=== PATIENT | female | born 1980 | race Caucasian/White ===

== ENCOUNTER 2020-03-30 16:16 | Inpatient (IN) | payer OTHER ==
[~2020-03-30] VITALS: Ht 162.6 cm; Wt 66.0 kg
[2020-03-30] MEDS ORDERED: MULTIVIT INFUSN,ADULT 4,VIT K 10 ML, THIAMINE INJ 100 MG, FOLIC ACID INJ 1 MG in IV NOR... IV ONE (16:45)
[2020-03-30 16:48] LABS: BILIRUBIN,URINE NEGATIVE (NEG); CLARITY,URINE CLEAR; COLOR,URINE YELLOW; NITRITE,URINE NEGATIVE (NEG); PH,URINE 6.5 (<5.0-8.0); PROTEIN,URINE NEGATIVE (NEG-TRACE)
[2020-03-30 16:57] LABS: BACTERIA,URINE MANY /HPF (0-FEW); SQUAMOUS EPITHELIAL CELL,UR MANY /LPF
[2020-03-30 16:58] LABS: RBC,URINE 0 /HPF (0-2); WBC,URINE OCC /HPF (0-4)
[2020-03-30 17:08] LABS: BASO % 0 % (0-3); EOS % 1 % (0-3); HEMATOCRIT 44.4 % (36.0-47.0); HEMOGLOBIN 15.7 g/dL (12.0-15.5); LYMPH # 1.1 x10^3/uL (1.0-4.8); LYMPH % 34 % (24-48); MEAN CORPUSCULAR HEMOGLOBIN 35 pg (25-35); MEAN CORPUSCULAR HGB CONC 35 g/dL (31-37); MEAN CORPUSCULAR VOLUME 99 fL (79-100); MONO # 0.5 x10^3/uL (0.0-1.1); MONO % 15 % (0-9); NEUT # 1.5 x10^3/uL (1.8-7.7); NEUT % 49 % (31-73); PLATELET COUNT 181 x10^3/uL (140-400); RED BLOOD COUNT 4.48 x10^6/uL (3.50-5.40); RED CELL DISTRIBUTION WIDTH 15.2 % (11.5-14.5); WHITE BLOOD COUNT 3.1 x10^3/uL (4.0-11.0)
[2020-03-30] MEDS ORDERED: ONDANSETRON PF 4 MG/2 ML VIAL. IVP ONE ×2 (17:15→19:15)
[2020-03-30 17:17] LABS: PROTHROMBIN TIME PATIENT 13.5 SEC (11.7-14.0)
[2020-03-30] MEDS ORDERED: IV NORMAL SALINE 1000ML BAG 1,000 ML IV ONE (17:30)
--- NOTE | 2020-03-30 17:37 | PHYS DOC ---
Past Medical History Past Medical History: Alcoholism (SENA STEVENSON APRN) Past Surgical History: Tonsillectomy (SENA STEVENSON APRN) Smoking Status: Current Every Day Smoker Alcohol Use: Heavy (SENA STEVENSON APRN) General Adult EDM: Chief Complaint: WITHDRAWL HPI: HPI: Patient is a 40 year old Female who presents with was at [facility] and for alcohol role rehab. Patient was sent here because of her tremors, anxiety, nausea and vomiting. Patient states she is not been able to keep anything including water down for the last couple days. She did state that she had 3 be ers today. She states about 2 years ago she had a seizure with withdrawals. She states that every day she usually has 16-24 beers. Patient denies hallucinations, chest pain, shortness of air, headache, abdominal pain, fever, vision changes, numbness or tingling, tactile hallucinations, SI, HI, dizziness. She does have visual tremors and was dry heaving in the room. Denies any pain at this time. Patient has a history of alcoholism and being a smoker. (SENA STEVENSON POLYETHYLENE COMBINER) Review of Systems: Review of Systems: Constitutional: Denies fever or chills. [] Eyes: Denies change in visual acuity. [] HENT: Denies nasal congestion or sore throat. [] Respiratory: Denies cough or shortness of breath. [] Cardiovascular: Denies chest pain or edema. [] GI: Denies abdominal pain. + nausea, +vomiting, denies bloody stools or diarrhea. [] : Denies dysuria. [] Musculoskeletal: Denies back pain or joint pain. [] Integument: Denies rash. [] Neurologic: Denies headache, focal weakness or sensory changes. Tremors [] Endocrine: Denies polyuria or polydipsia. [] Lymphatic: Denies swollen glands. [] Psychiatric: Denies depression. + anxiety. [] (SENA STEVENSON POLYETHYLENE COMBINER) Heart Score: Risk Factors: Risk Factors: DM, Current or recent (<one month) smoker, HTN, HLP, family history of CAD, obesity. Risk Scores: Score 0 - 3: 2.5% MACE over next 6 weeks - Discharge Home Score 4 - 6: 20.3% MACE over next 6 weeks - Admit for Clinical Observation Score 7 - 10: 72.7% MACE over next 6 weeks - Early Invasive Strategies (SENA STEVENSON APRN) Current Medications: Current Medications Medications (Trade) Dose Ordered Sig/Jerome Start Time Stop Time Status Last Admin Dose Admin Lorazepam (Ativan Inj) 0.5 mg 1X ONCE 03/30/20 17:15 03/30/20 17:16 DC 03/30/20 17:15 0.5 MG Multivitamins 10 ml/Thiamine HCl 100 mg/Folic Acid 1 mg/Sodium Chloride 1,011.2 ml @ 1,000 mls/ hr 1X ONCE 03/30/20 16:45 03/30/20 17:45 Ondansetron HCl (Zofran) 4 mg 1X ONCE 03/30/20 17:15 03/30/20 17:16 DC 03/30/20 17:16 4 MG Sodium Chloride 1,000 ml @ 1,000 mls/hr 1X ONCE 03/30/20 17:30 03/30/20 18:29 (SENA STEVENSON APRN) Allergies: Allergies: Allergies Coded Allergies Type Severity Reaction Last Updated Verified Penicillins Allergy Intermediate Rash 03/30/20 Yes (SENA STEVENSON APRN) Physical Exam: PE: Constitutional: Well developed, well nourished, no acute distress, non-toxic appearance. [] HENT: Normocephalic, atraumatic, bilateral external ears normal, oropharynx moist, no oral exudates, nose normal. [] Eyes: PERRLA, EOMI, conjunctiva normal, no discharge. [] Neck: Normal range of motion, no tenderness, supple, no stridor. [] Cardiovascular:Heart rate regular rhythm, no murmur [] Lungs & Thorax: Bilateral breath sounds clear to auscultation [] Abdomen: Bowel sounds normal, soft, no tenderness, no masses, no pulsatile masses. [] Skin: Warm, dry, no erythema, no rash. [] Back: No tenderness, no CVA tenderness. [] Extremities: No tenderness, no cyanosis, no clubbing, ROM intact, no edema. [] Neurologic: Alert and oriented X 3, normal motor function, normal sensory function, no focal deficits noted. Visual tremors. [] Psychologic: Affect normal, judgement normal, mood normal. Anxious. [] (SENA STEVENSON APRN) Current Patient Data: Labs: Laboratory Tests Test 03/30/20 16:32 03/30/20 16:55 Urine Collection Type Unknown Urine Color Yellow Urine Clarity Clear Urine pH 6.5 (<5.0-8.0) Urine Specific [place] 1.010 (1.000-1.030) Urine Protein Negative mg/dL (NEG-TRACE) Urine Glucose (UA) Negative mg/dL (NEG) Urine Ketones (Stick) Trace mg/dL (NEG) Urine Blood Negative (NEG) Urine Nitrite Negative (NEG) Urine Bilirubin Negative (NEG) Urine Urobilinogen Dipstick 1.0 mg/dL (0.2 mg/dL) Urine Leukocyte Esterase Trace (NEG) Urine RBC 0 /HPF (0-2) Urine WBC Occ /HPF (0-4) Urine Squamous Epithelial Cells Many /LPF Urine Bacteria Many /HPF (0-FEW) Urine Mucus Slight /LPF White Blood Count 3.1 x10^3/uL (4.0-11.0) L Red Blood Count 4.48 x10^6/uL (3.50-5.40) Hemoglobin 15.7 g/dL (12.0-15.5) H Hematocrit 44.4 % (36.0-47.0) Mean Corpuscular Volume 99 fL (79-100) Mean Corpuscular Hemoglobin 35 pg (25-35) Mean Corpuscular Hemoglobin Concent 35 g/dL (31-37) Red Cell Distribution Width 15.2 % (11.5-14.5) H Platelet Count 181 x10^3/uL (140-400) Neutrophils (%) (Auto) 49 % (31-73) Lymphocytes (%) (Auto) 34 % (24-48) Monocytes (%) (Auto) 15 % (0-9) H Eosinophils (%) (Auto) 1 % (0-3) Basophils (%) (Auto) 0 % (0-3) Neutrophils # (Auto) 1.5 x10^3/uL (1.8-7.7) L Lymphocytes # (Auto) 1.1 x10^3/uL (1.0-4.8) Monocytes # (Auto) 0.5 x10^3/uL (0.0-1.1) Eosinophils # (Auto) 0.0 x10^3/uL (0.0-0.7) Basophils # (Auto) 0.0 x10^3/uL (0.0-0.2) Prothrombin Time 13.5 SEC (11.7-14.0) Prothrombin Time INR 1.1 (0.8-1.1) Laboratory Tests 03/30/20 16:55 Vital Signs: Vital Signs Date Time Temp Pulse Resp B/P (MAP) Pulse Ox O2 Delivery O2 Flow Rate FiO2 03/30/20 16:45 98.0 94 17 132/75 (94) 97 Room Air 98.0 (SENA STEVENSON APRN) EKG: EK and read by Dr. Rashid is sinus tachycardia at 102 and no STEMI. [] (SENA STEVENSON APRN) Radiology/Procedures: Radiology/Procedures: [] Impression: [facility] [address] [place], [place] [id number] IMAGING REPORT Signed PATIENT: ROSALBA WU ACCOUNT: [id number] : 1980 LOCATION: ER AGE: 40 SEX: F EXAM STATUS: REG ER ORD. PHYSICIAN: SENA STEVENSON APRN REASON: elevated liver enzymes, vomiting, OMNI 300, 75 ML IV PROCEDURE: CT ABD PELV W/ IV CONTRST ONLY Exam: CT of abdomen and pelvis with contrast INDICATION: Elevated liver enzymes, vomiting TECHNIQUE: Sequential axial images through the abdomen and pelvis obtained following the administration of 75 mL of Omni 300 IV contrast. Sagittal and coronal reformatted images were reconstructed from the axial data and reviewed. Comparisons: None FINDINGS: Heart size is normal. No pericardial effusion. Strandy opacities at the dependent portion of the lungs likely representing atelectasis. No pleural effusion. There is severe diffuse hepatic steatosis. Spleen, pancreas, gallbladder and adrenals are unremarkable. Kidneys demonstrate symmetric enhancement. No perinephric inflammation or hydronephrosis. No renal or ureteral calculi are identified. Bladder is distended and appears thin-walled. Uterus is nonenlarged. No abnormal adnexal mass. Large and small bowel are unremarkable. Appendix is normal. No free intra-abdominal air or fluid. No obstruction. Abdominal aorta has a normal course and caliber. Abdominal vasculature is patent. No enlarged abdominal lymph nodes are identified. No suspicious osseous lesions or acute fractures. IMPRESSION: Severe diffuse hepatic steatosis., May relate to steatohepatitis. Exposure: One or more of the following in the visualized dose reduction techniques were utilized for this examination: 1. Automated exposure control 2. Adjustment of the MA and/or KV according to patient size 3. Use of iterative of reconstructive technique Electronically signed by: Rupert Porter MD (03/30/2020 7:44 PM) [id number] DICTATED and SIGNED BY: RUPERT PORTER MD DATE: 03/30/201943 (SENA STEVENSON APRN) Course & Med Decision Making: Course & Med Decision Making Pertinent Labs and Imaging studies reviewed. (See chart for details) See HPI. Alert and oriented x4. Ambulatory with a steady gait but she is shaky. Speaks in full clear sentences. Abdomen soft and nontender. Skin pink warm and dry. CIWA 14. I gave the patient 0.5MG Ativan IV and Zofran. She is getting a banana bag and another liter of normal saline. I have spoken to Dr. Miller concerning the patient. She is being admitted by Dr. Miller. Nurse called [facility] and let them know that the patient was being admitted to the hospital and would not be returning tonight. Patient continues to be nauseated. Liver enzymes are elevated. [] (SENA STEVENSON APRN) Dragon Disclaimer: Dragon Disclaimer: This electronic medical record was generated, in whole or in part, using a voice recognition dictation system. (SENA STEVENSON APRN) Departure Departure Impression: Primary Impression: Alcohol withdrawal Qualified Codes: F10.230 - Alcohol dependence with withdrawal, uncomplicated Disposition: ADMITTED INPATIENT Admitting Physician: TRUDY (SENA STEVENSON APRN) Condition: STABLE Referrals: RENETTA VIVAR (PCP) Justicifation of Admission Dx: Justifications for Admission: Justification of Admission Dx: Yes Comments: Alcohol withdrawl (SENA STEVENSON APRN) Attending Signature Attending Signature I have reviewed the PA/SECONDARY ENGLISH TEACHER's note and plan of care. I was available for consultation as needed during the patient's visit in the emergency department. I agree with the clinical impression, plan, and disposition. (OPAL RASHID DO) SENA STEVENSON APRN Mar 30, 2020 17:37 OPAL RASHID DO Mar 31, 2020 07:10
[2020-03-30 18:05] LABS: ACETAMIN < 2 mcg/ml (10-30); ETHANOL 113 mg/dL (0-10); SALIC 3.4 mg/dL (2.8-20.0)
[2020-03-30 18:08] LABS: BARBITURATES NEG (NEG); BENZODIAZEPINES NEG (NEG); CANNABINOIDS NEG (NEG); COCAINE NEG (NEG); METHADONE NEG (NEG); OPIATES NEG (NEG); PHENCYCLIDINE NEG (NEG)
[2020-03-30 18:09] LABS: AMPHETAMINE/METHAMPHETAMINE NEG (NEG)
[2020-03-30 18:19] LABS: CALCIUM 8.5 mg/dL (8.5-10.1); CREATININE 0.8 mg/dL (0.6-1.0); GFR 79.4; POTASSIUM 3.4 mmol/L (3.5-5.1)
[2020-03-30 18:25] LABS: ALBUMIN 4.2 g/dL (3.4-5.0); ALBUMIN/GLOBULIN RATIO 1.2 (1.0-1.7); TOTAL BILIRUBIN 1.2 mg/dL (0.2-1.0); TOTAL PROTEIN 7.8 g/dL (6.4-8.2)
[2020-03-30 19:08] LABS: U PREG PATIENT NEGATIVE (NEG)
[2020-03-30] MEDS ORDERED: IOHEXOL 300 MG/ML 100ML VIAL. IV ONE (19:15)
[2020-03-30] MEDS ORDERED: CONTRAST GIVEN. MC PRN (19:15)
--- NOTE | 2020-03-30 19:47 | RAD ---
Exam: CT of abdomen and pelvis with contrast INDICATION: Elevated liver enzymes, vomiting TECHNIQUE: Sequential axial images through the abdomen and pelvis obtained following the administration of 75 mL of Omni 300 IV contrast. Sagittal and coronal reformatted images were reconstructed from the axial data and reviewed. Comparisons: None FINDINGS: Heart size is normal. No pericardial effusion. Strandy opacities at the dependent portion of the lungs likely representing atelectasis. No pleural effusion. There is severe diffuse hepatic steatosis. Spleen, pancreas, gallbladder and adrenals are unremarkable. Kidneys demonstrate symmetric enhancement. No perinephric inflammation or hydronephrosis. No renal or ureteral calculi are identified. Bladder is distended and appears thin-walled. Uterus is nonenlarged. No abnormal adnexal mass. Large and small bowel are unremarkable. Appendix is normal. No free intra-abdominal air or fluid. No obstruction. Abdominal aorta has a normal course and caliber. Abdominal vasculature is patent. No enlarged abdominal lymph nodes are identified. No suspicious osseous lesions or acute fractures. IMPRESSION: Severe diffuse hepatic steatosis., May relate to steatohepatitis. Exposure: One or more of the following in the visualized dose reduction techniques were utilized for this examination: 1. Automated exposure control 2. Adjustment of the MA and/or KV according to patient size 3. Use of iterative of reconstructive technique Electronically signed by: Rupert Alfredo MD (03/30/2020 7:44 PM) [id number]
[2020-03-30] MEDS ORDERED: HALOPERIDOL LACTATE 5 MG/ML VIAL. IVP PRN (20:15)
[2020-03-30] MEDS ORDERED: cloNIDine HCL 0.1 MG TABLET PO PRN (20:15)
[2020-03-30] MEDS ORDERED: diphenhydrAMINE 50 MG/ML VIAL IVP PRN (20:15)
[2020-03-30] MEDS ORDERED: fentaNYL PF VIAL 100 MCG/2 ML VIAL IV PRN (20:15)
[2020-03-30] MEDS ORDERED: PROCHLORPERAZINE 10 MG/2 ML VIAL. IV ONE (20:30)
[2020-03-30 21:45] VITALS: BP 115/78
--- NOTE | 2020-03-30 21:45 | NUR ---
ADMISSION NOTE Pt admitted to room 514 via ER cart. Pt is A/Ox4, somewhat anxious. Explained POC, seizure precautions, ETOH w/draw protocol/CIWA assessment. Pt vu. Call light given to pt and explained. Pt also given written hospital paperwork. Admission assessment and history completed. Pt is from [place], [place], and just went to [facility] today for alcohol withdraw and treatment. Contact information for [facility] copied from ER note and placed in the chart. Pt doesn't have any personal belongings except for glasses, clothes and flip flops, which are left in the room. Will monitor.
[2020-03-30] MEDS ORDERED: CITA40TA5 PO (22:31)
[2020-03-30 23:00] VITALS: BP 102/58
[2020-03-30] MEDS: IV NORMAL SALINE 1000ML BAG 1,000 ML IV SCH (23:19)
[2020-03-30] MEDS: ENOXAPARIN 40 MG/0.4 ML SYRINGE. SQ SCH (23:20)
[2020-03-31 03:00] VITALS: BP 109/73
[2020-03-31] MEDS: IV NORMAL SALINE 1000ML BAG 1,000 ML IV SCH ×3 (05:46→15:40)
[2020-03-31] MEDS: ONDANSETRON PF 4 MG/2 ML VIAL. IV PRN ×2 (05:50→18:03)
[2020-03-31 07:59] VITALS: BP 109/70
[2020-03-31] MEDS: MULTIVIT INFUSN,ADULT 4,VIT K 10 ML, THIAMINE INJ 100 MG, FOLIC ACID INJ 1 MG in IV NOR... IV SCH (09:00)
--- NOTE | 2020-03-31 11:16 | PDOC1 ---
History and Physical Date of Admission Date of Admission DATE: 03/31/20 TIME: 11:00 Identification/Chief Complaint Chief Complaint Alcohol withdrawal Source Source: Patient History of Present Illness History of Present Illness Patient is a 40-year-old female with past medical history of alcohol abuse, who presents to the ER with complaints of alcohol withdrawal. Patient states she had checked herself into [facility], where she was noted to have worsening tremors, anxiety, and nausea since yesterday morning. She states she was dry heaving without any actual vomiting. [facility] evaluation. She states she does have a history of alcohol withdrawal seizures, with last seizure around 2 years ago. Patient states she drinks roughly 16-24 beers daily. She denies any visual hallucinations. Past Medical History Past Medical History Alcohol abuse Psych: Anxiety, Depression Past Surgical History Past Surgical History: Tonsillectomy Family History Family History: Alcohol Abuse Social History Smoke: <1 pack per day ALCOHOL: heavy Drugs: None Current Problem List Problem List Problems Medical Problems: (1) Alcohol withdrawal Status: Acute Current Medications Current Medications Current Medications Multivitamins 10 ml/Thiamine HCl 100 mg/Folic Acid 1 mg/Sodium Chloride 1,011.2 ml @ 1,000 mls/ hr 1X ONCE IV Last administered on 03/30/20at 17:37; Start 03/30/20 at 16:45; Stop 03/30/20 at 17:45; Status DC Ondansetron HCl (Zofran) 4 mg 1X ONCE IVP Last administered on 03/30/20at 17:16; Start 03/30/20 at 17:15; Stop 03/30/20 at 17:16; Status DC Lorazepam (Ativan Inj) 0.5 mg 1X ONCE IVP Last administered on 03/30/20at 17:15; Start 03/30/20 at 17:15; Stop 03/30/20 at 17:16; Status DC Sodium Chloride 1,000 ml @ 1,000 mls/hr 1X ONCE IV Last administered on 03/30/20at 17:56; Start 03/30/20 at 17:30; Stop 03/30/20 at 18:29; Status DC Lorazepam (Ativan Inj) 0.5 mg 1X ONCE IVP Last administered on 03/30/20at 18:57; Start 03/30/20 at 18:45; Stop 03/30/20 at 18:46; Status DC Ondansetron HCl (Zofran) 4 mg 1X ONCE IVP ; Start 03/30/20 at 19:15; Stop 03/30/20 at 19:18; Status DC Iohexol (Omnipaque 300 Mg/ml) 75 ml 1X ONCE IV Last administered on 03/30/20at 19:20; Start 03/30/20 at 19:15; Stop 03/30/20 at 19:18; Status DC Info (CONTRAST GIVEN -- Rx MONITORING) 1 each PRN DAILY PRN MC SEE COMMENTS; Start 03/30/20 at 19:15; Stop 04/01/20 at 19:14 Fentanyl Citrate (Fentanyl 2ml Vial) 50 mcg PRN Q1HR PRN IV PAIN; Start 03/30/20 at 20:15; Stop 03/31/20 at 20:14 Sodium Chloride 1,000 ml @ 150 mls/hr Q6H40M IV Last administered on 03/31/20at 05:46; Start 03/30/20 at 20:15; Stop 03/31/20 at 20:14 Ondansetron HCl (Zofran) 4 mg PRN Q4HRS PRN IV NAUSEA/VOMITING Last administered on 03/31/20at 05:50; Start 03/30/20 at 20:15 Acetaminophen (Tylenol) 650 mg PRN Q4HRS PRN PO TEMP OVER 100.4F OR MILD PAIN; Start 03/30/20 at 20:15 Enoxaparin Sodium (Lovenox 40mg Syringe) 40 mg Q24H SQ Last administered on 03/30/20at 23:20; Start 03/30/20 at 21:00 Multivitamins 10 ml/Thiamine HCl 100 mg/Folic Acid 1 mg/Sodium Chloride 1,011.2 ml @ 100 mls/ hr DAILY IV Last administered on 03/31/20at 09:00; Start 03/31/20 at 09:00; Stop 04/01/20 at 19:07 Lorazepam (Ativan) 2 mg PRN Q1HR PRN PO For CIWA 8-14; Start 03/30/20 at 20:15 Lorazepam (Ativan) 4 mg PRN Q1HR PRN PO For CIWA 15 or greater; Start 03/30/20 at 20:15 Lorazepam (Ativan Inj) 2 mg PRN Q1HR PRN IV For CIWA 8-14 Last administered on 03/31/20at 05:50; Start 03/30/20 at 20:15 Lorazepam (Ativan Inj) 4 mg PRN Q1HR PRN IV For CIWA 15 or greater; Start 03/30/20 at 20:15 Haloperidol Lactate (Haldol Inj) 5 mg PRN Q4HRS PRN IVP Hallucinatns,Confusn,Delirium; Start 03/30/20 at 20:15 Diphenhydramine HCl (Benadryl) 25 mg PRN Q15MIN PRN IVP EPS symptoms 2'Haldol admin; Start 03/30/20 at 20:15 Clonidine HCl (Catapres) 0.1 mg PRN Q1HR PRN PO SBP > 180 or DBP > 100, MRX3; Start 03/30/20 at 20:15 Prochlorperazine Edisylate (Compazine) 10 mg 1X ONCE IV Last administered on 03/30/20at 21:07; Start 03/30/20 at 20:30; Stop 03/30/20 at 20:31; Status DC Active Scripts Active Reported Citalopram Hbr (Citalopram Hydrobromide) 40 Mg Tablet 40 Mg PO DAILY Allergies Allergies: Coded Allergies: Penicillins (Verified Allergy, Intermediate, Rash, 03/30/20) ROS General: No: Chills, Night Sweats PSYCHOLOGICAL ROS: YES: Anxiety; No: Hallucinations Eyes: No Blurry vision, No Decreased vision HEENT: No: Oral lesions, Sore Throat ALLERGY AND IMMUNOLOGY: No: Hives, Nasal Congestion Hematological and Lymphatic: No: Bleeding Problems, Brusing Respiratory: No: Cough, Shortness of breath Cardiovascular: No Chest Pain, No Palpitations Gastrointestinal: Yes Nausea; No Vomiting, No Abdominal Pain, No Diarrhea Genitourinary: No Dysuria, No Frequency Musculoskeletal: No Joint Swelling, No Muscle Pain Neurological: No Behavorial Changes, No Confusion Skin: No Pruritus, No Rash Physical Exam General: Alert, Oriented X3, Cooperative HEENT: PERRLA Lungs: Clear to auscultation, Normal air movement Heart: RRR Cardiovascular: S1, S2 Abdomen: Normal bowel sounds, No tenderness Extremities: No clubbing, No cyanosis, No edema Skin: No rashes, No breakdown Neuro: Other (Tremulous) Psych/Mental Status: Mental status NL, Mood NL Vitals Vitals Vital Signs Date Time Temp Pulse Resp B/P (MAP) Pulse Ox O2 Delivery O2 Flow Rate FiO2 03/31/20 08:00 Room Air 03/31/20 07:59 98.8 100 18 109/70 (83) 95 98.8 Labs Labs Laboratory Tests Test 03/30/20 16:32 03/30/20 16:55 Urine Collection Type Unknown Urine Color Yellow Urine Clarity Clear Urine pH 6.5 (<5.0-8.0) Urine Specific White 1.010 (1.000-1.030) Urine Protein Negative mg/dL (NEG-TRACE) Urine Glucose (UA) Negative mg/dL (NEG) Urine Ketones (Stick) Trace mg/dL (NEG) Urine Blood Negative (NEG) Urine Nitrite Negative (NEG) Urine Bilirubin Negative (NEG) Urine Urobilinogen Dipstick 1.0 mg/dL (0.2 mg/dL) Urine Leukocyte Esterase Trace (NEG) Urine RBC 0 /HPF (0-2) Urine WBC Occ /HPF (0-4) Urine Squamous Epithelial Cells Many /LPF Urine Bacteria Many /HPF (0-FEW) Urine Mucus Slight /LPF Urine Test Negative (NEG) Urine Opiates Screen Neg (NEG) Urine Methadone Screen Neg (NEG) Urine Barbiturates Neg (NEG) Urine Phencyclidine Screen Neg (NEG) Urine Amphetamine/Methamphetamine Neg (NEG) Urine Benzodiazepines Screen Neg (NEG) Urine Cocaine Screen Neg (NEG) Urine Cannabinoids Screen Neg (NEG) Urine Ethyl Alcohol Pos (NEG) White Blood Count 3.1 x10^3/uL (4.0-11.0) Red Blood Count 4.48 x10^6/uL (3.50-5.40) Hemoglobin 15.7 g/dL (12.0-15.5) Hematocrit 44.4 % (36.0-47.0) Mean Corpuscular Volume 99 fL (79-100) Mean Corpuscular Hemoglobin 35 pg (25-35) Mean Corpuscular Hemoglobin Concent 35 g/dL (31-37) Red Cell Distribution Width 15.2 % (11.5-14.5) Platelet Count 181 x10^3/uL (140-400) Neutrophils (%) (Auto) 49 % (31-73) Lymphocytes (%) (Auto) 34 % (24-48) Monocytes (%) (Auto) 15 % (0-9) Eosinophils (%) (Auto) 1 % (0-3) Basophils (%) (Auto) 0 % (0-3) Neutrophils # (Auto) 1.5 x10^3/uL (1.8-7.7) Lymphocytes # (Auto) 1.1 x10^3/uL (1.0-4.8) Monocytes # (Auto) 0.5 x10^3/uL (0.0-1.1) Eosinophils # (Auto) 0.0 x10^3/uL (0.0-0.7) Basophils # (Auto) 0.0 x10^3/uL (0.0-0.2) Prothrombin Time 13.5 SEC (11.7-14.0) Prothromb Time International Ratio 1.1 (0.8-1.1) Sodium Level 136 mmol/L (136-145) Potassium Level 3.4 mmol/L (3.5-5.1) Chloride Level 97 mmol/L (98-107) Carbon Dioxide Level 27 mmol/L (21-32) Anion Gap 12 (6-14) Blood Urea Nitrogen 5 mg/dL (7-20) Creatinine 0.8 mg/dL (0.6-1.0) Estimated GFR (Cockcroft-Gault) 79.4 BUN/Creatinine Ratio 6 (6-20) Glucose Level 76 mg/dL (70-99) Calcium Level 8.5 mg/dL (8.5-10.1) Magnesium Level 2.1 mg/dL (1.8-2.4) Total Bilirubin 1.2 mg/dL (0.2-1.0) Aspartate Amino Transf (AST/SGOT) 341 U/L (15-37) Alanine Aminotransferase (ALT/SGPT) 277 U/L (14-59) Alkaline Phosphatase 117 U/L (46-116) Total Protein 7.8 g/dL (6.4-8.2) Albumin 4.2 g/dL (3.4-5.0) Albumin/Globulin Ratio 1.2 (1.0-1.7) Lipase 337 U/L (73-393) Salicylates Level 3.4 mg/dL (2.8-20.0) Salicylate Last Dose Date Unknown Salicylate Last Dose Time Unknown Acetaminophen Level < 2 mcg/ml (10-30) Acetaminophen Last Dose Date Unknown Acetaminophen Last Dose Time Unknown Ethyl Alcohol Level 113 mg/dL (0-10) Laboratory Tests Test 03/30/20 16:32 03/30/20 16:55 Urine Collection Type Unknown Urine Color Yellow Urine Clarity Clear Urine pH 6.5 (<5.0-8.0) Urine Specific White 1.010 (1.000-1.030) Urine Protein Negative mg/dL (NEG-TRACE) Urine Glucose (UA) Negative mg/dL (NEG) Urine Ketones (Stick) Trace mg/dL (NEG) Urine Blood Negative (NEG) Urine Nitrite Negative (NEG) Urine Bilirubin Negative (NEG) Urine Urobilinogen Dipstick 1.0 mg/dL (0.2 mg/dL) Urine Leukocyte Esterase Trace (NEG) Urine RBC 0 /HPF (0-2) Urine WBC Occ /HPF (0-4) Urine Squamous Epithelial Cells Many /LPF Urine Bacteria Many /HPF (0-FEW) Urine Mucus Slight /LPF Urine Test Negative (NEG) Urine Opiates Screen Neg (NEG) Urine Methadone Screen Neg (NEG) Urine Barbiturates Neg (NEG) Urine Phencyclidine Screen Neg (NEG) Urine Amphetamine/Methamphetamine Neg (NEG) Urine Benzodiazepines Screen Neg (NEG) Urine Cocaine Screen Neg (NEG) Urine Cannabinoids Screen Neg (NEG) Urine Ethyl Alcohol Pos (NEG) White Blood Count 3.1 x10^3/uL (4.0-11.0) Red Blood Count 4.48 x10^6/uL (3.50-5.40) Hemoglobin 15.7 g/dL (12.0-15.5) Hematocrit 44.4 % (36.0-47.0) Mean Corpuscular Volume 99 fL (79-100) Mean Corpuscular Hemoglobin 35 pg (25-35) Mean Corpuscular Hemoglobin Concent 35 g/dL (31-37) Red Cell Distribution Width 15.2 % (11.5-14.5) Platelet Count 181 x10^3/uL (140-400) Neutrophils (%) (Auto) 49 % (31-73) Lymphocytes (%) (Auto) 34 % (24-48) Monocytes (%) (Auto) 15 % (0-9) Eosinophils (%) (Auto) 1 % (0-3) Basophils (%) (Auto) 0 % (0-3) Neutrophils # (Auto) 1.5 x10^3/uL (1.8-7.7) Lymphocytes # (Auto) 1.1 x10^3/uL (1.0-4.8) Monocytes # (Auto) 0.5 x10^3/uL (0.0-1.1) Eosinophils # (Auto) 0.0 x10^3/uL (0.0-0.7) Basophils # (Auto) 0.0 x10^3/uL (0.0-0.2) Prothrombin Time 13.5 SEC (11.7-14.0) Prothromb Time International Ratio 1.1 (0.8-1.1) Sodium Level 136 mmol/L (136-145) Potassium Level 3.4 mmol/L (3.5-5.1) Chloride Level 97 mmol/L (98-107) Carbon Dioxide Level 27 mmol/L (21-32) Anion Gap 12 (6-14) Blood Urea Nitrogen 5 mg/dL (7-20) Creatinine 0.8 mg/dL (0.6-1.0) Estimated GFR (Cockcroft-Gault) 79.4 BUN/Creatinine Ratio 6 (6-20) Glucose Level 76 mg/dL (70-99) Calcium Level 8.5 mg/dL (8.5-10.1) Magnesium Level 2.1 mg/dL (1.8-2.4) Total Bilirubin 1.2 mg/dL (0.2-1.0) Aspartate Amino Transf (AST/SGOT) 341 U/L (15-37) Alanine Aminotransferase (ALT/SGPT) 277 U/L (14-59) Alkaline Phosphatase 117 U/L (46-116) Total Protein 7.8 g/dL (6.4-8.2) Albumin 4.2 g/dL (3.4-5.0) Albumin/Globulin Ratio 1.2 (1.0-1.7) Lipase 337 U/L (73-393) Salicylates Level 3.4 mg/dL (2.8-20.0) Salicylate Last Dose Date Unknown Salicylate Last Dose Time Unknown Acetaminophen Level < 2 mcg/ml (10-30) Acetaminophen Last Dose Date Unknown Acetaminophen Last Dose Time Unknown Ethyl Alcohol Level 113 mg/dL (0-10) VTE Prophylaxis Ordered VTE Prophylaxis Devices: Yes VTE Pharmacological Prophylaxi: No Assessment/Plan Assessment/Plan Alcohol abuse, alcohol withdrawal Plan: Continue daily IV multivitamin/thiamine/folic acid. Ativan as needed withdrawal symptoms seizure-like activity. Zofran as needed. Seizure precautions. FEN - regular diet PPX - compression devices FULL CODE, mother is surrogate decision-maker Dispo - inpatient 2 midnights Justifications for Admission Other Justification DAYDAY PETERSEN MD Mar 31, 2020 11:15
[2020-03-31 11:59] VITALS: BP 117/71
[2020-03-31 15:50] VITALS: BP 105/67
[2020-03-31] MEDS: ACETAMINOPHEN 325 MG TABLET. PO PRN ×2 (18:03→22:00)
[2020-03-31 20:30] VITALS: BP 103/71
[2020-03-31] MEDS: ENOXAPARIN 40 MG/0.4 ML SYRINGE. SQ SCH (22:01)
[2020-03-31 22:15] VITALS: BP 112/76
[2020-04-01 03:00] VITALS: BP 106/71
[2020-04-01 04:59] LABS: BASO # 0.1 x10^3/uL (0.0-0.2); BASO % 2 % (0-3); EOS # 0.1 x10^3/uL (0.0-0.7); EOS % 2 % (0-3); HEMATOCRIT 42.3 % (36.0-47.0); HEMOGLOBIN 14.4 g/dL (12.0-15.5); LYMPH # 1.4 x10^3/uL (1.0-4.8); LYMPH % 56 % (24-48); MEAN CORPUSCULAR HEMOGLOBIN 35 pg (25-35); MEAN CORPUSCULAR HGB CONC 34 g/dL (31-37); MEAN CORPUSCULAR VOLUME 101 fL (79-100); MONO # 0.3 x10^3/uL (0.0-1.1); MONO % 13 % (0-9); NEUT # 0.7 x10^3/uL (1.8-7.7); NEUT % 27 % (31-73); PLATELET COUNT 132 x10^3/uL (140-400); RED BLOOD COUNT 4.18 x10^6/uL (3.50-5.40); RED CELL DISTRIBUTION WIDTH 15.1 % (11.5-14.5); WHITE BLOOD COUNT 2.5 x10^3/uL (4.0-11.0)
[2020-04-01 05:17] LABS: CALCIUM 8.5 mg/dL (8.5-10.1); CREATININE 0.5 mg/dL (0.6-1.0); GFR 136.6; POTASSIUM 3.4 mmol/L (3.5-5.1)
[2020-04-01 07:00] VITALS: BP 103/65
[2020-04-01] MEDS ORDERED: POTASSIUM CHLORIDE 20 MEQ TABLET.ER. PO ONE (09:15)
--- NOTE | 2020-04-01 09:17 | PDOC ---
[employer] PROGRESS NOTE Date of Service DOS: DATE: 04/01/20 TIME: 09:11 Chief Complaint Chief Complaint Alcohol abuse, alcohol withdrawal - Cont daily IV multivitamin/thiamine/folic acid. Ativan as needed withdrawal symptoms seizure-like activity. Zofran as needed. Seizure precautions. Smoker - counseled COVID 19 exposure, almost certainly is positive FEN - regular diet PPX - compression devices FULL CODE, mother is surrogate decision-maker Dispo - inpatient 2 midnights History of Present Illness History of Present Illness Ms Matos is a 40-year-old female with past medical history of alcohol abuse, who presents to the ER with complaints of alcohol withdrawal. Patient states she had checked herself into [facility] alcohol rehab facility, where she was noted to have worsening tremors, anxiety, and nausea since 03/30/2020 in the morning. She states she was dry heaving without any actual vomiting. She was brought to the emergency department for further evaluation. She states she does have a history of alcohol withdrawal seizures, with last seizure around 2 years ago. Patient states she drinks roughly 16-24 beers daily. She denies any visual hallucinations. ETOH 133 at 1655 on 03/30/2020. Overnight with temp of 100.2 F. K3.4 today. She has not required any Ativan. She is clear, lucid. She notes that she absolutely does need to go to alcohol rehab but has family problems that are more important. She does not exhibit any signs of withdrawal now. She notes that she did have a recent relapse due to a bad relationship and she has severed this relationship now. She denies any chest pain, does have some mild shortness of breath slight cough. Not requiring O2. Transferred to COVID-19 isolation unit and testing was performed after patient was sober and awakened and notified staff that her teenage child tested positive for COVID-19 at a volleyball tournament and her other child also tested positive for COVID-19. Both her parents are in their 70s and they currently live there with them. Her children are currently with her ex, but he is unable to continue to care for them beyond tonight. She informs me her plan is to return to [facility] and retrieve her things in her car keys and to drive to [facility] and stay on her parents houseboat at [facility] for the next 14 days and then return to [place] for rehabilitation and have her children stay with her parents after they have convalesced from COVID-19. Vitals/I&O Vitals/I&O: Vital Signs Date Time Temp Pulse Resp B/P (MAP) Pulse Ox O2 Delivery O2 Flow Rate FiO2 04/01/20 07:00 97.9 97 16 103/65 (78) 98 Room Air 97.9 I & O 03/31/20 03/31/20 04/01/20 15:00 23:00 07:00 Intake Total 250 ml 100 ml Balance 250 ml 100 ml Physical Exam General: Alert, Oriented X3, Cooperative Abdomen: Normal bowel sounds, No tenderness Extremities: No clubbing, No cyanosis, No edema Skin: No rashes, No breakdown Labs Labs: Laboratory Tests Test 04/01/20 04:30 White Blood Count 2.5 x10^3/uL (4.0-11.0) Red Blood Count 4.18 x10^6/uL (3.50-5.40) Hemoglobin 14.4 g/dL (12.0-15.5) Hematocrit 42.3 % (36.0-47.0) Mean Corpuscular Volume 101 fL (79-100) Mean Corpuscular Hemoglobin 35 pg (25-35) Mean Corpuscular Hemoglobin Concent 34 g/dL (31-37) Red Cell Distribution Width 15.1 % (11.5-14.5) Platelet Count 132 x10^3/uL (140-400) Neutrophils (%) (Auto) 27 % (31-73) Lymphocytes (%) (Auto) 56 % (24-48) Monocytes (%) (Auto) 13 % (0-9) Eosinophils (%) (Auto) 2 % (0-3) Basophils (%) (Auto) 2 % (0-3) Neutrophils # (Auto) 0.7 x10^3/uL (1.8-7.7) Lymphocytes # (Auto) 1.4 x10^3/uL (1.0-4.8) Monocytes # (Auto) 0.3 x10^3/uL (0.0-1.1) Eosinophils # (Auto) 0.1 x10^3/uL (0.0-0.7) Basophils # (Auto) 0.1 x10^3/uL (0.0-0.2) Sodium Level 140 mmol/L (136-145) Potassium Level 3.4 mmol/L (3.5-5.1) Chloride Level 104 mmol/L (98-107) Carbon Dioxide Level 26 mmol/L (21-32) Anion Gap 10 (6-14) Blood Urea Nitrogen 4 mg/dL (7-20) Creatinine 0.5 mg/dL (0.6-1.0) Estimated GFR (Cockcroft-Gault) 136.6 Glucose Level 72 mg/dL (70-99) Calcium Level 8.5 mg/dL (8.5-10.1) Assessment and Plan Assessmemt and Plan Problems Medical Problems: (1) Alcohol withdrawal Status: Acute Comment Review of Relevant I have reviewed the following items melvi (where applicable) has been applied. Justifications for Admission Other Justification MARISA CARDONA MD Apr 01, 2020 09:17
[2020-04-01] MEDS: ONDANSETRON PF 4 MG/2 ML VIAL. IV PRN (09:46)
[2020-04-01] MEDS: MULTIVIT INFUSN,ADULT 4,VIT K 10 ML, THIAMINE INJ 100 MG, FOLIC ACID INJ 1 MG in IV NOR... IV SCH (09:47)
[2020-04-01 11:00] VITALS: BP 122/85
[2020-04-01 15:05] VITALS: BP 123/77
[2020-04-01] MEDS ORDERED: CLON0.1T12 PO (15:32)
[2020-04-01] MEDS ORDERED: GABA-585 PO (15:32)
[2020-04-01] MEDS ORDERED: LORA-434 PO (15:32)
--- NOTE | 2020-04-01 15:48 | PDOC3 ---
Discharge Summary Visit Information Date of Admission: Mar 30, 2020 Date of Discharge: Apr 01, 2020 Admitting Diagnosis: Alcohol withdrawal Final Diagnosis Problems Medical Problems: (1) Alcohol withdrawal Status: Acute Brief Hospital Course Allergies Allergies Coded Allergies Type Severity Reaction Last Updated Verified Penicillins Allergy Intermediate Rash 03/30/20 Yes Vital Signs Vital Signs Date Time Temp Pulse Resp B/P (MAP) Pulse Ox O2 Delivery O2 Flow Rate FiO2 04/01/20 15:05 98.0 88 15 123/77 (92) 98 Room Air 98.0 Lab Results Laboratory Tests Test 03/30/20 16:32 03/30/20 16:55 04/01/20 04:30 Urine Collection Type Unknown Urine Color Yellow Urine Clarity Clear Urine pH 6.5 (<5.0-8.0) Urine Specific [place] 1.010 (1.000-1.030) Urine Protein Negative mg/dL (NEG-TRACE) Urine Glucose (UA) Negative mg/dL (NEG) Urine Ketones (Stick) Trace mg/dL (NEG) Urine Blood Negative (NEG) Urine Nitrite Negative (NEG) Urine Bilirubin Negative (NEG) Urine Urobilinogen Dipstick 1.0 mg/dL (0.2 mg/dL) Urine Leukocyte Esterase Trace (NEG) Urine RBC 0 /HPF (0-2) Urine WBC Occ /HPF (0-4) Urine Squamous Epithelial Cells Many /LPF Urine Bacteria Many /HPF (0-FEW) Urine Mucus Slight /LPF Urine Test Negative (NEG) Urine Opiates Screen Neg (NEG) Urine Methadone Screen Neg (NEG) Urine Barbiturates Neg (NEG) Urine Phencyclidine Screen Neg (NEG) Urine Amphetamine/Methamphetamine Neg (NEG) Urine Benzodiazepines Screen Neg (NEG) Urine Cocaine Screen Neg (NEG) Urine Cannabinoids Screen Neg (NEG) Urine Ethyl Alcohol Pos (NEG) White Blood Count 3.1 x10^3/uL (4.0-11.0) 2.5 x10^3/uL (4.0-11.0) Red Blood Count 4.48 x10^6/uL (3.50-5.40) 4.18 x10^6/uL (3.50-5.40) Hemoglobin 15.7 g/dL (12.0-15.5) 14.4 g/dL (12.0-15.5) Hematocrit 44.4 % (36.0-47.0) 42.3 % (36.0-47.0) Mean Corpuscular Volume 99 fL (79-100) 101 fL (79-100) Mean Corpuscular Hemoglobin 35 pg (25-35) 35 pg (25-35) Mean Corpuscular Hemoglobin Concent 35 g/dL (31-37) 34 g/dL (31-37) Red Cell Distribution Width 15.2 % (11.5-14.5) 15.1 % (11.5-14.5) Platelet Count 181 x10^3/uL (140-400) 132 x10^3/uL (140-400) Neutrophils (%) (Auto) 49 % (31-73) 27 % (31-73) Lymphocytes (%) (Auto) 34 % (24-48) 56 % (24-48) Monocytes (%) (Auto) 15 % (0-9) 13 % (0-9) Eosinophils (%) (Auto) 1 % (0-3) 2 % (0-3) Basophils (%) (Auto) 0 % (0-3) 2 % (0-3) Neutrophils # (Auto) 1.5 x10^3/uL (1.8-7.7) 0.7 x10^3/uL (1.8-7.7) Lymphocytes # (Auto) 1.1 x10^3/uL (1.0-4.8) 1.4 x10^3/uL (1.0-4.8) Monocytes # (Auto) 0.5 x10^3/uL (0.0-1.1) 0.3 x10^3/uL (0.0-1.1) Eosinophils # (Auto) 0.0 x10^3/uL (0.0-0.7) 0.1 x10^3/uL (0.0-0.7) Basophils # (Auto) 0.0 x10^3/uL (0.0-0.2) 0.1 x10^3/uL (0.0-0.2) Prothrombin Time 13.5 SEC (11.7-14.0) Prothromb Time International Ratio 1.1 (0.8-1.1) Sodium Level 136 mmol/L (136-145) 140 mmol/L (136-145) Potassium Level 3.4 mmol/L (3.5-5.1) 3.4 mmol/L (3.5-5.1) Chloride Level 97 mmol/L (98-107) 104 mmol/L (98-107) Carbon Dioxide Level 27 mmol/L (21-32) 26 mmol/L (21-32) Anion Gap 12 (6-14) 10 (6-14) Blood Urea Nitrogen 5 mg/dL (7-20) 4 mg/dL (7-20) Creatinine 0.8 mg/dL (0.6-1.0) 0.5 mg/dL (0.6-1.0) Estimated GFR (Cockcroft-Gault) 79.4 136.6 BUN/Creatinine Ratio 6 (6-20) Glucose Level 76 mg/dL (70-99) 72 mg/dL (70-99) Calcium Level 8.5 mg/dL (8.5-10.1) 8.5 mg/dL (8.5-10.1) Magnesium Level 2.1 mg/dL (1.8-2.4) Total Bilirubin 1.2 mg/dL (0.2-1.0) Aspartate Amino Transf (AST/SGOT) 341 U/L (15-37) Alanine Aminotransferase (ALT/SGPT) 277 U/L (14-59) Alkaline Phosphatase 117 U/L (46-116) Total Protein 7.8 g/dL (6.4-8.2) Albumin 4.2 g/dL (3.4-5.0) Albumin/Globulin Ratio 1.2 (1.0-1.7) Lipase 337 U/L (73-393) Salicylates Level 3.4 mg/dL (2.8-20.0) Salicylate Last Dose Date Unknown Salicylate Last Dose Time Unknown Acetaminophen Level < 2 mcg/ml (10-30) Acetaminophen Last Dose Date Unknown Acetaminophen Last Dose Time Unknown Ethyl Alcohol Level 113 mg/dL (0-10) Laboratory Tests Test 04/01/20 04:30 White Blood Count 2.5 x10^3/uL (4.0-11.0) Red Blood Count 4.18 x10^6/uL (3.50-5.40) Hemoglobin 14.4 g/dL (12.0-15.5) Hematocrit 42.3 % (36.0-47.0) Mean Corpuscular Volume 101 fL (79-100) Mean Corpuscular Hemoglobin 35 pg (25-35) Mean Corpuscular Hemoglobin Concent 34 g/dL (31-37) Red Cell Distribution Width 15.1 % (11.5-14.5) Platelet Count 132 x10^3/uL (140-400) Neutrophils (%) (Auto) 27 % (31-73) Lymphocytes (%) (Auto) 56 % (24-48) Monocytes (%) (Auto) 13 % (0-9) Eosinophils (%) (Auto) 2 % (0-3) Basophils (%) (Auto) 2 % (0-3) Neutrophils # (Auto) 0.7 x10^3/uL (1.8-7.7) Lymphocytes # (Auto) 1.4 x10^3/uL (1.0-4.8) Monocytes # (Auto) 0.3 x10^3/uL (0.0-1.1) Eosinophils # (Auto) 0.1 x10^3/uL (0.0-0.7) Basophils # (Auto) 0.1 x10^3/uL (0.0-0.2) Sodium Level 140 mmol/L (136-145) Potassium Level 3.4 mmol/L (3.5-5.1) Chloride Level 104 mmol/L (98-107) Carbon Dioxide Level 26 mmol/L (21-32) Anion Gap 10 (6-14) Blood Urea Nitrogen 4 mg/dL (7-20) Creatinine 0.5 mg/dL (0.6-1.0) Estimated GFR (Cockcroft-Gault) 136.6 Glucose Level 72 mg/dL (70-99) Calcium Level 8.5 mg/dL (8.5-10.1) Brief Hospital Course Ms Matos is a 40-year-old female with past medical history of alcohol abuse, who presents to the ER with complaints of alcohol withdrawal. Patient states she had checked herself into [facility] facility, where she was noted to have worsening tremors, anxiety, and nausea since 03/30/2020 in the morning. She states she was dry heaving without any actual vomiting. She was brought to the emergency department for further evaluation. She states she does have a history of alcohol withdrawal seizures, with last seizure around 2 years ago. Patient states she drinks roughly 16-24 beers daily. She denies any visual hallucinations. ETOH 133 at 1655 on 03/30/2020. Overnight with temp of 100.2 F. K3.4 today. She has not required any Ativan. She is clear, lucid. She notes that she absolutely does need to go to alcohol rehab but has family problems that are more important. She does not exhibit any signs of withdrawal now. She notes that she did have a recent relapse due to a bad relationship and she has severed this relationship now. She denies any chest pain, does have some mild shortness of breath slight cough. Not requiring O2. Transferred to COVID-19 isolation unit and testing was performed after patient was sober and awakened and notified staff that her teenage child tested positive for COVID-19 at a [place] tournament and her other child also tested positive for COVID-19. Both her parents are in their 70s and they currently live there with them. Her children are currently with her ex, but he is unable to continue to care for them beyond [facility]. She informs me her plan is to return to [facility] and retrieve her things in her car keys and to drive to [facility] and stay on her parents houseboat at [facility] for the next 14 days and then return to [place] for rehabilitation and have her children stay with her parents after they have convalesced from COVID-19. She has been discharged safe and sober to return to [facility] to retrieve her belongings and her vehicle prior to driving to [facility] to stay at [facility]. This is being facilitated by [facility] team social work liaison. Alcohol abuse, alcohol withdrawal -clonidine, Ativan, gabapentin tapers sent to pharmacy. She will likely return to alcohol rehab in 14 days after her children were cleared of COVID-19 and she has a stable childcare situation. Smoker - counseled COVID 19 exposure, almost certainly is positive Greater than 30 minutes spent on d/c Discharge Information Condition at Discharge: Improved Follow Up: Weeks (1) Disposition/Orders: D/C to Home Scheduled Citalopram Hydrobromide (Citalopram Hbr) 40 Mg Tablet, 40 MG PO DAILY for anxiety/depresio, (Reported) Entered as Reported by: RAMIREZ CASTRO on 03/30/202230 Last Action: New Order on 03/30/202230 by RAMIREZ CASTRO Gabapentin (Gabapentin ) 100 Mg Capsule, 100 MG PO TID for Alcohol withdrawal for 90 Days, #270 Ref 1 Prescribed by: MARISA CARDONA MD on 04/01/20 1532 Scheduled PRN Clonidine Hcl (Catapres) 0.1 Mg Tablet, 0.1 MG PO PRN Q1HR PRN for SBP > 180 or DBP > 100, MRX3 for 14 Days, #28 Take 1 tab every 8 hours as needed for anxiety, tremors. Prescribed by: MARISA CARDONA MD on 04/01/20 1532 Lorazepam (Ativan) 1 Mg Tablet, 2 MG PO PRN Q1HR PRN for ALCOHOL WITHDRAWAL for 3 Days, #9 Prescribed by: MARISA CARDONA MD on 04/01/20 1533 Justicifation of Admission Dx: Justifications for Admission: Justification of Admission Dx: Yes MARISA CARDONA MD Apr 01, 2020 15:48
--- NOTE | 2020-04-01 17:00 | NUR ---
The rehab facility stated they would not release pt keys to director of casework services from PAT team. Dr. Miller confirmed with [facility] that pt is able to go get belongings from facility. Taxi cab called. Discharge paperwork given to patient. Will continue to monitor
--- NOTE | 2020-04-01 17:50 | NUR ---
This RN called the [employer] to check status of machine pecan picker. A medical billing representative from the company stated that the milk driver called [phone] and patient did not come out to the [employer] [facility]. Trip rebooked and correct phone number given to call when [employer] arrives. Will continue to monitor. Addendum: 04/01/20 at 1849 by ELIZABETH WOOD RN This RN called [employer] to check status of cab and they stated they are still finding a assembly line driver to send for pick-up.
[2020-04-01] MEDS: ENOXAPARIN 40 MG/0.4 ML SYRINGE. SQ SCH (19:35)
--- NOTE | 2020-04-01 21:06 | NUR ---
Patient currently waiting for cab in ER. Security aware and have cab pass.
--- NOTE | 2020-04-03 10:48 | EKG ---
[facility] [address] [place] [address] Test Date: 2020-03-30 Test Time: 16:46:25 Pat Name: ROSALBA WU Department: Room: Gender: F Manager Money: : 1980 Requested By: SEAN STEVENSON Order Number: [id number] Reading MD: Measurements Intervals [place] Rate: 102 P: 51 VA: 138 QRS: 64 QRSD: 72 T: 54 QT: 348 QTc: 458 Interpretive Statements SINUS TACHYCARDIA QRS(T) CONTOUR ABNORMALITY CONSISTENT WITH ANTEROSEPTAL INFARCT PROBABLY OLD ABNORMAL ECG RI6.02 No previous ECG available for comparison
--- NOTE | 2020-04-03 12:01 | NUR ---
IP: Notified pt of negative COVID test,. Pt verbalized understanding.
== END 2020-04-01 22:00 | disposition home or self-care (01) | DRG 897 ==
LOC: ER 16:16 → 5 NORTH 20:04 → 6 SOUTH 03-31 22:28
PROVIDERS: ADMIT Internal Medicine; ATTEND Internal Medicine
DX: F10.230 Alcohol dependence with withdrawal, uncomplicated (principal); F17.210 Nicotine dependence, cigarettes, uncomplicated; Y90.6 Blood alcohol level of 120-199 mg/100 ml; F32.9 Major depressive disorder, single episode, unspecified; F41.9 Anxiety disorder, unspecified; Z20.828 Contact with and (suspected) exposure to other viral communicable diseases; Z88.0 Allergy status to penicillin; Z81.1 Family history of alcohol abuse and dependence
CPT/HCPCS: 36415; 74177; 80048; 80053; 80307; 80329; 81001; 81025; 83690; 83735; 85025; 85610; 87086; 93005; 96365; 96366; 96375; 96376; 99285; G0480; J0780; J1650; J2060; J2405; J3411; J3490; J7030; Q9967; G0378; U0003-CS